=== PATIENT | female | born 1970 | race Caucasian/White ===

== ENCOUNTER → 2023-04-01 07:33 | Outpatient (REF) | payer OTHER, SELFPAY ==
[2023-04-01 09:10] LABS: ALT (SGPT) 34 U/L (0-35); AST (SGOT) 27 U/L (14-36); Albumin 4.2 g/dl (3.5-5.0); Alkaline Phosphatase 45 U/L (38-126); Blood Urea Nitrogen 16 mg/dl (7-17); Calcium 9.8 mg/dl (8.4-10.2); Carbon Dioxide 29 mmol/L (22-30); Chloride 103 mmol/L (98-107); Glucose 90 mg/dl (70-99); HDL Cholesterol 54 mg/dl; LDL Cholesterol, Calculated 136 mg/dl; Potassium 4.6 mmol/L (3.5-5.1); Sodium 141 mmol/L (135-145); Total Cholesterol 213 mg/dl (50-199); Total Protein 6.9 g/dl (6.3-8.2); Triglyceride 116 mg/dl (10-149); Very Low Density Lipoprotein 23 mg/dl (0-30); eGFR > 60.00
== END ==
LOC: REG 07:33
PROVIDERS: ATTENDING PHYSICIAN Internal Medicine Cardiovascular Disease
DX: Z13.220 Encounter for screening for lipoid disorders (principal); I10 Essential (primary) hypertension
CPT/HCPCS: 36415; 80053; 80061

== ENCOUNTER → 2023-04-02 10:31 | Outpatient (REF) | payer OTHER, SELFPAY | LOC: MRI 10:31 | PROVIDERS: ATTENDING PHYSICIAN Emergency Medicine | DX: R47.1 Dysarthria and anarthria (principal); R47.81 Slurred speech; R47.89 Other speech disturbances | CPT/HCPCS: 70544; 70547; 70553; A9575 ==

== ENCOUNTER → 2023-04-08 10:24 | Outpatient (REF) | payer OTHER, SELFPAY ==
[2023-04-08 13:00] LABS: Folate 16.8 ng/ml (2.76-20)
[2023-04-08 16:19] LABS: Lyme Antibody Screen, EIA Negative (Negative)
[2023-04-09 14:49] LABS: Syphilis/T. pallidum Ab Reflex Negative (Negative)
[2023-04-09 16:43] LABS: HIV Combo Negative (Negative)
== END ==
LOC: REG 10:24
PROVIDERS: ATTENDING PHYSICIAN Psychiatry & Neurology Neurology; FAMILY PHYSICIAN Emergency Medicine
DX: R47.9 Unspecified speech disturbances (principal)
CPT/HCPCS: 36415; 82746; 86618; 86780; 87389

== ENCOUNTER 2023-05-06 18:22 | Emergency (ER) | payer OTHER, SELFPAY ==
[2023-05-06 18:25] VITALS: BP 170/117
[2023-05-06 21:13] VITALS: BMI 25.8
[2023-05-06 21:20] VITALS: BP 144/95
[2023-05-06 21:53] LABS: % Basophils 1.1 % (0-2); % Eosinophils 1.6 % (0-6); % Immature Granulocytes 0.2 % (0-0.5); % Lymphocytes 27.7 % (20.5-51.1); % Monocytes 7.2 % (1.7-9.3); % Neutrophils 62.2 % (42.2-75.2); Absolute Basophils 0.1 10^3/uL (0-0.2); Absolute Eosinophils 0.1 10^3/uL (0-0.7); Absolute Lymphocytes 2.5 10^3/uL (1.2-3.4); Absolute Monocytes 0.6 10^3/uL (0.1-0.6); Absolute Neutrophils 5.5 10^3/uL (1.4-6.5); Hematocrit 40.4 % (37.0-47.0); Hemoglobin 14.2 g/dL (12.0-16.0); Mean Corp Hgb Conc. 35.1 g/dL (33.0-37.0); Mean Corpuscular Hgb 30.5 pg (27.0-31.0); Mean Corpuscular Volume 86.7 fL (81.0-99.0); Mean Platelet Volume 9.7 fL (7.4-10.4); Nucleated Red Blood Cells % 0 %; Platelet Count 318 10^3/uL (130-400); Red Blood Cell Count 4.66 10^6/uL (4.20-5.40); White Blood Cell Count 8.9 10^3/uL (4.8-10.8)
[2023-05-06 22:08] LABS: ALT (SGPT) 31 U/L (0-35); AST (SGOT) 27 U/L (14-36); Albumin 4.9 g/dl (3.5-5.0); Alkaline Phosphatase 53 U/L (38-126); Blood Urea Nitrogen 13 mg/dl (7-17); Calcium 10.2 mg/dl (8.4-10.2); Carbon Dioxide 24 mmol/L (22-30); Chloride 103 mmol/L (98-107); Estimated Creatinine Clearance 99 ml/min; Glucose 96 mg/dl (70-99); Sodium 136 mmol/L (135-145); Total Bilirubin 1.1 mg/dl (0.2-1.3); Total Protein 7.7 g/dl (6.3-8.2); eGFR > 60.00
[2023-05-06 22:19] LABS: Troponin I < 0.012 ng/ml
--- NOTE | 2023-05-06 22:24 | ED.GENMED ---
History of Present Illness
General
Chief Complaint: Back Pain
Source: patient and spouse
Exam Limitations: none
Time Seen by Provider: 05/06/23 22:04
Travel History
Have you had any contact with someone who has COVID-19?: No
Do you have any symptoms of coronavirus? Fever > 100 degrees, chills, cough, shortness of breath, sore throat, loss of taste or smell, muscle aches, or headache?: No
History of Present Illness
History of Present Illness:
See MDM
Past History
Past History
ED Past Medical History: HTN, Other (low back pain; TOMMIE x 1 6 years ago) and Other (scoliosis; kidney stone)
ED Past Surgical History: Orthopedic (L knee arthroscopy, right shoulder repair)
Social History
Tobacco: Non-smoker
Alcohol: None
Personal:
Living: with family
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
Family History
Family History: Other (Noncontributory)
Phy Exam
Physical Exam
Physical Exam:
See MDM
Course
Orders/Labs/Results
Orders:
Orders
05/06/23 18:29
Electrocardiogram (*1) Urgent
Reason for Study: Other
Other Reason for Exam: jaw tightness
EKG- Treatment ONCE
05/06/23 21:43
Complete Blood Count/With Diff Urgent
Comprehensive Metabolic Panel Urgent
05/06/23 21:45
Troponin I Urgent
Comment: upper back pain
05/06/23 21:43
05/06/23 21:43
Vital Signs
Initial and Last Documented VS:
Initial Vital Signs
Temp Pulse Resp BP Pulse Ox
97.7 F 90 16 170/117 98
05/06/23 18:25 05/06/23 18:25 05/06/23 18:25 05/06/23 18:25 05/06/23 18:25
Last Documented Vital Signs
Temp Pulse Resp BP Pulse Ox
97.7 F 87 20 144/95 97
05/06/23 18:25 05/06/23 21:20 05/06/23 21:20 05/06/23 21:20 05/06/23 21:20
MDM/Problems Addressed
Differential Diagnosis Includes:
HPI and MDM Narrative:
53-year-old female presenting with resolved back and arm pain. She developed it a few hours ago while she was [place]. Symptoms have since resolved on their own. Spouse at bedside indicating that there is more to the
story. Patient is worried this could be related to a possible stroke. Patient has developed mild aphasia over the past several months. Since then, they had seen PCP and have had MRI, MRA and carotid ultrasounds. Spouse states all are negative.
They have since been seeing a speech pathologist which has helped with her speech issues. The patient is worried because her mother had a stroke in her 50s.
On exam, there is no physical findings to explain chest or back pain. Lungs are clear. No rash. No muscle spasm. Patient is sitting in bed comfortably. I had a very long conversation with patient and indicating that the neck step may be
following up with PCP and possibly psychiatry. She appears to be under stress with her new diagnosis and I do believe that speaking to a psychiatrist may help with some of her symptoms. Patient and very receptive to this
Physical exam
General: Well appearing and non-toxic
HEENT: protecting airway
Neck: appears supple
CV: No evidence of cyanosis. Regular rate and rhythm
Resp: No accessory muscle use. Lungs clear
Abd: Non-distended
Extremities: No deformities. No lower leg edema
Neuro: alert. Slow speech
Psych: Normal affect
Skin: Intact
Problems Addressed including Acute and Chronic Conditions affecting care:
1. Back and arm pain
Acuity: acute
Prognosis: stable
Details: EKG nonischemic. Basic blood work obtained. We discussed likely musculoskeletal pain
2. Slow speech
Acuity: Chronic
Prognosis: stable
Details: Symptoms improving with speech pathology. Discussed follow-up with psych
Updates
Blood work within normal limits. Patient and feel comfortable going home
Differential Diagnosis (but not limited to): Muscle strain, noncardiac chest pain
Testing considered: D-dimer but she is neither tachycardic nor hypoxic
Drug therapy (if applicable): OTC meds, please see d/c instruction regarding Rx drugs
Amount and/or Complexity of Data Reviewed
Clinical info obtained from: Patient and
External data reviewed: N/A
Labs I independently reviewed (but not limited to): Troponin negative
Radiology: N/A
Pulse Ox: not hypoxic
EKG independently reviewed: Sinus rhythm, normal axis, no STEMI
[employer] Supervisor: N/A
Critical Care: N/A
Risk of Complication:
Social Determinants of health: Good social support
Discussed with other providers: N/A
Escalation of Care includes Admit/Obs: After being observed in the Emergency Department, pt stable for discharge.
Occasional wrong word or 'sound a like' substitutions may have occurred due to the inherent limitations of voice recognition software. Read the chart carefully and recognize, using context, where substitutions have occurred.
*Critical Care Note
Total Time (30-74mins, 75-104mins- exclusive of procedures): Not Applicable
ED Attending Note
-
Portions of this chart may have been created with voice recognition software.� Occasional wrong word or��sound alike� substitutions may have occurred due to the inherent limitations of voice recognition software.
Discharge Plan
Departure
Patient Disposition: Home (Routine Discharge)
Date of Disposition: 05/06/23
Time of Disposition: 23:15
Patient with high blood pressure during this ER visit?: Yes
Discharge Problem:
Back pain
Instructions: Upper Back Pain (DC), BLOOD PRESSURE
Prescriptions:
No Action
Lisinopril
20 mg PO DAILY
ezetimibe [Zetia] 10 mg Tablet
10 mg PO DAILY
aspirin 81 mg Capsule
81 mg PO DAILY
Vitamin C
1 tab PO DAILY
Vitamin D3
1 tab PO DAILY
Referrals:
Aracelis Phan MD [Family Provider] -
Activity Restrictions/Additional Instructions:
Please return for any worsening symptoms.
You may return at any time if you have further concerns.
Please follow up with your doctor at the first available appointment, preferably this week.
Thank you for choosing [facility].
Interventions
Interventions:
*Risk Screen - Suicide Last Done: 05/06/23 21:20
*General Assessment Last Done: 05/06/23 21:20
ED- Fall Risk Assessment Last Done: 05/06/23 21:20
*ED COVID-19 Vaccine History Last Done: 05/06/23 18:25
ED-Musculoskeletal Assessment Last Done: 05/06/23 21:20
[2023-05-06 23:39] VITALS: BP 133/100
== END 2023-05-06 23:39 | disposition home or self-care (01) ==
LOC: EMR 18:22
PROVIDERS: Emergency Medicine; EMERGENCY PHYSICIAN Student in an Organized Health Care Education/Training Program; FAMILY PHYSICIAN Emergency Medicine
DX: M54.9 Dorsalgia, unspecified (principal); I10 Essential (primary) hypertension; Z87.442 Personal history of urinary calculi
CPT/HCPCS: 99283; 80053; 84484; 85025; 93005

== ENCOUNTER 2023-05-07 06:40 | Outpatient (RCR) | payer OTHER, SELFPAY | END 2023-05-07 23:59 | disposition home or self-care (01) | LOC: RST 06:40 | PROVIDERS: ATTENDING PHYSICIAN Psychiatry & Neurology Neurology; FAMILY PHYSICIAN Emergency Medicine | DX: R47.9 Unspecified speech disturbances (principal) | CPT/HCPCS: 92507; 92523 ==

== ENCOUNTER → 2023-05-14 15:23 | Outpatient (REF) | payer OTHER, SELFPAY ==
[2023-05-14 17:48] LABS: C-Reactive Protein < 5.00 mg/L (0.0-10.00)
[2023-05-14 17:52] LABS: Erythrocyte Sed Rate 8 mm/hour (0-20)
[2023-05-14 18:06] LABS: FSH 55.1 mIU/ml; Prolactin 7.2 ng/ml (3.0-18.6)
[2023-05-14 18:20] LABS: TSH Reflex To Free T4 2.91 uIU/ml (0.47-4.68)
[2023-05-14 18:22] LABS: Testosterone, Total 32.5 ng/dl
[2023-05-17 07:53] LABS: ANA, IgG Reflex to HEp-2 None Detected (None Detected)
[2023-05-18 12:54] LABS: Myeloperoxidase Antibody 0 AU/mL (0-19); Serine Protease-3, IgG 1 AU/mL (0-19)
[2023-05-20 12:40] LABS: Albumin 4.81 g/dL (3.75-5.01); Alpha 1 Globulin 0.25 g/dL (0.19-0.46); Alpha 2 Globulin 0.71 g/dL (0.48-1.05); SPEP IFE Reflex Not Done; Total Protein-Electrophoresis 7.7 g/dL (6.3-8.2)
== END ==
LOC: REG 15:23
PROVIDERS: ATTENDING PHYSICIAN Emergency Medicine
DX: R47.89 Other speech disturbances (principal); R47.1 Dysarthria and anarthria; R47.81 Slurred speech
CPT/HCPCS: 36415; 83001; 83002; 83516; 84146; 84155; 84165; 84403; 84443; 85652; 86038; 86140

== ENCOUNTER 2023-05-27 09:22 | Outpatient (RCR) | payer OTHER, SELFPAY | END 2023-05-27 23:59 | disposition home or self-care (01) | LOC: RST 09:22 | PROVIDERS: ATTENDING PHYSICIAN Psychiatry & Neurology Neurology; FAMILY PHYSICIAN Emergency Medicine | DX: R47.9 Unspecified speech disturbances (principal) | CPT/HCPCS: 92507; 92523 ==

== ENCOUNTER → 2023-05-30 08:20 | Outpatient (REF) | payer OTHER, SELFPAY ==
[2023-05-30 09:50] LABS: Blood Urea Nitrogen 16 mg/dl (7-17); Calcium 9.7 mg/dl (8.4-10.2); Carbon Dioxide 24 mmol/L (22-30); Chloride 108 mmol/L (98-107); Glucose 95 mg/dl (70-99); Potassium 4.6 mmol/L (3.5-5.1); Sodium 139 mmol/L (135-145); eGFR > 60.00
[2023-05-30 12:23] LABS: Free T4 0.85 ng/dl (0.78-2.19)
[2023-05-30 12:36] LABS: Cortisol, Random 15.8 ug/dl; TSH 4.98 uIU/ml (0.47-4.68)
[2023-05-31 14:53] LABS: Adrenocorticotropic Hormone 19.3 pg/mL (7.2-63.3)
[2023-06-04 03:05] LABS: IGF-1 Z Score Calculation 1.3; Insulin-like Growth Factor I 199 ng/mL (49-234)
== END ==
LOC: REG 08:20
PROVIDERS: ATTENDING PHYSICIAN Internal Medicine Endocrinology, Diabetes & Metabolism; FAMILY PHYSICIAN Emergency Medicine
DX: E23.6 Other disorders of pituitary gland (principal)
CPT/HCPCS: 36415; 80048; 82024; 82533; 84305; 84436; 84439; 84443

== ENCOUNTER 2023-06-18 09:39 | Outpatient (RCR) | payer OTHER, SELFPAY | END 2023-06-18 23:59 | disposition home or self-care (01) | LOC: RST 09:39 | PROVIDERS: ATTENDING PHYSICIAN Psychiatry & Neurology Neurology; FAMILY PHYSICIAN Emergency Medicine | DX: R47.89 Other speech disturbances (principal) | CPT/HCPCS: 92507 ==

== ENCOUNTER → 2023-07-06 07:42 | Outpatient (REF) | payer OTHER, SELFPAY | LOC: MRI 07:42 | PROVIDERS: ATTENDING PHYSICIAN Psychiatry & Neurology Neurology; FAMILY PHYSICIAN Emergency Medicine | DX: R29.898 Other symptoms and signs involving the musculoskeletal system (principal) | CPT/HCPCS: 70553; A9575 ==

== ENCOUNTER → 2023-07-19 07:03 | Outpatient (REF) | payer OTHER, SELFPAY | LOC: MRI 3T 07:03 | PROVIDERS: ATTENDING PHYSICIAN Orthopaedic Surgery; FAMILY PHYSICIAN Emergency Medicine | DX: M54.2 Cervicalgia (principal) | CPT/HCPCS: 72141 ==

== ENCOUNTER → 2023-07-19 08:42 | Outpatient (REF) | payer OTHER, SELFPAY ==
[2023-07-19 09:52] LABS: Creatine Phosphokinase 86 U/L (30-135)
[2023-07-19 10:27] LABS: HIV Combo Negative (Negative)
[2023-07-20 17:43] LABS: Ceruloplasmin 22 mg/dL (16-45)
[2023-07-21 00:30] LABS: Copper, Serum 102.3 ug/dL (80.0-155.0)
== END ==
LOC: REG 08:42
PROVIDERS: ATTENDING PHYSICIAN Student in an Organized Health Care Education/Training Program; FAMILY PHYSICIAN Emergency Medicine
DX: G12.20 Motor neuron disease, unspecified (principal)
CPT/HCPCS: 36415; 82390; 82525; 82550; 82565; 82784; 83521; 84155; 84165; 84630; 86334; 87389

== ENCOUNTER 2023-07-23 10:02 | Outpatient (RCR) | payer OTHER, SELFPAY | END 2023-07-23 23:59 | disposition home or self-care (01) | LOC: RST 10:02 | PROVIDERS: ATTENDING PHYSICIAN Psychiatry & Neurology Neurology; FAMILY PHYSICIAN Emergency Medicine | DX: R47.9 Unspecified speech disturbances (principal) | CPT/HCPCS: 92507 ==

== ENCOUNTER → 2023-08-13 07:31 | Outpatient (REF) | payer OTHER, SELFPAY | LOC: PAVMRI 07:31 | PROVIDERS: ATTENDING PHYSICIAN Student in an Organized Health Care Education/Training Program; FAMILY PHYSICIAN Emergency Medicine | DX: G12.20 Motor neuron disease, unspecified (principal) | CPT/HCPCS: 72146 ==

== ENCOUNTER 2023-08-28 08:39 | Outpatient (RCR) | payer OTHER, SELFPAY | END 2023-08-28 23:59 | disposition home or self-care (01) | LOC: RST 08:39 | PROVIDERS: ATTENDING PHYSICIAN Psychiatry & Neurology Neurology; FAMILY PHYSICIAN Emergency Medicine | DX: R47.9 Unspecified speech disturbances (principal) | CPT/HCPCS: 92507 ==

== ENCOUNTER → 2024-05-01 09:19 | Outpatient (REF) | payer OTHER, SELFPAY | LOC: WDC 09:19 | PROVIDERS: ATTENDING PHYSICIAN Nurse Practitioner | DX: R92.8 Other abnormal and inconclusive findings on diagnostic imaging of breast (principal) | CPT/HCPCS: 77065 ==

== ENCOUNTER → 2024-05-01 10:13 | Outpatient (REF) | payer OTHER, SELFPAY ==
[2024-05-01 13:11] LABS: ALT (SGPT) 42 U/L (0-35); AST (SGOT) 38 U/L (14-36); HDL Cholesterol 56 mg/dl; LDL Cholesterol, Calculated 75 mg/dl; Total Cholesterol 147 mg/dl (50-199); Triglyceride 83 mg/dl (10-149); Very Low Density Lipoprotein 16 mg/dl (0-30)
== END ==
LOC: REG 10:13
PROVIDERS: ATTENDING PHYSICIAN Internal Medicine Cardiovascular Disease; FAMILY PHYSICIAN Nurse Practitioner
DX: I10 Essential (primary) hypertension (principal); E78.00 Pure hypercholesterolemia, unspecified; R74.01 Elevation of levels of liver transaminase levels; K76.0 Fatty (change of) liver, not elsewhere classified
CPT/HCPCS: 36415; 80061; 84450; 84460

== ENCOUNTER 2024-08-15 15:50 | Emergency (ER) | payer OTHER, MEDICARE, SELFPAY ==
[2024-08-15 15:51] VITALS: BMI 18.2
[2024-08-15 15:52] VITALS: BP 146/98
--- NOTE | 2024-08-15 18:55 | ED.GENMED ---
History of Present Illness
General
Chief Complaint: Head Injury
Time Seen by Provider: 08/15/24 17:36
History of Present Illness
History of Present Illness:
54-year-old female with history of ALS and frontotemporal dementia presenting after a fall. Daughter is at bedside note the patient has chronic weakness to upper extremities. She her dog got in the way and she tripped, falling forward, was not
able to brace her fall. She separately fell forward, struck her face without reported loss of consciousness. She arrives with a laceration to her upper and bleeding. She is unsure if her tooth is loose. Family note that she chronically has
issues in handling her secretions. Patient somewhat limited historian given her chronic medical history. No reported additional injuries. No report of any blood thinners or additional medical complaints
Past History
Past History
ED Past Medical History: HTN, Other (low back pain; TOMMIE x 1 6 years ago) and Other (scoliosis; kidney stone)
ED Past Surgical History: Orthopedic (L knee arthroscopy, right shoulder repair)
Social History
Tobacco: Non-smoker
Alcohol: None
Personal:
Living: with family
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
Family History
Family History: Other (Noncontributory)
Phy Exam
Physical Exam
Physical Exam:
General: Well-appearing, no clinical signs of dehydration, nontoxic and in no acute distress
HEENT: protecting airway, pupils equal and reactive
Head: Complicated laceration at the upper lip, involving the lip, through and through. Tooth #11 is slightly loose. Bite appears to be intact.
Neck: appears supple
CV: Normal heart rate
Resp: No accessory muscle use, no increased work of breathing, lungs clear to auscultation bilaterally
Abd: Soft and non-distended, no tenderness to palpation
Extremities: No deformities, no swelling
Neuro: alert, no focal neurologic deficit
: deferred
Rectal: deferred
Psych: Normal affect
Skin: Intact
Course
Orders/Labs/Results
Orders:
Orders
08/15/24 17:55
CT Facial Bones W/o Iv Contras Urgent
Comment:
Reason For Exam: upper lip/facial trauma after fall
CT Head W/o Iv Contrast Urgent
Comment:
Reason For Exam: fall, facial trauma
08/15/24 19:13
Tetanus/Diphth/Acelpertussis [Adacel] 0.5 ml IM .ONCE ONE
Vital Signs
Initial and Last Documented VS:
Initial Vital Signs
Temp Pulse Resp BP Pulse Ox
98.3 F 128 18 146/98 98
08/15/24 15:52 08/15/24 15:52 08/15/24 15:52 08/15/24 15:52 08/15/24 15:52
Last Documented Vital Signs
Temp Pulse Resp BP Pulse Ox
98.3 F 128 18 146/98 98
08/15/24 15:52 08/15/24 15:52 08/15/24 15:52 08/15/24 15:52 08/15/24 18:59
Procedures
Laceration Closure
Lip:
Status of Wound: clean
Size of Wound in cm: 5
Description of Wound Edges: ragged
Preparation: cleaned with saline
Anesthesia: 1% Lidocaine
Type of Closure: layered closure
Skin Closure Material: 4-0 vicryl
Number of sutures: 5
Face:
Status of Wound: clean
Size of Wound in cm: 5
Description of Wound Edges: sharp
Preparation: cleaned with saline
Anesthesia: 1% Lidocaine
Type of Closure: layered closure
Skin Closure Material: 5-0 nylon
Number of sutures: 9
MDM/Problems Addressed
MDM/Problems Addressed:
54-year-old female with history of ALS and frontotemporal dementia presenting after a fall. Vital signs significant for tachycardia.
On exam, patient is resting comfortably, no acute distress. Patient has obvious facial trauma with complicated laceration above the upper lip, involving the lip, through and through. Inner upper lip initially dislodged between gumline of front
teeth. Patient was anesthetized with lidocaine and was able to free the lip and investigate the laceration. Laceration and wound was irrigated. Wound was appropriately sutured. Please see procedure note. Front tooth does appear to be a little
loose. Will obtain CT head and CT facial bones
21:00 -patient CT of his head is unremarkable. CT of the face shows a subtle maxillary spine fracture. Did discuss with oral maxillofacial surgeon, no present treatment needed. Advised following up with the dentist given tooth #11 being slightly
loose with the fracture. Ultimately feel stable for discharge. There was scant amount of blood from the left nare upon discharge, no patrice epistaxis, no internal trauma to the nose.
*Pulse Oximetry
SaO2: 98
Oxygen Mode of Delivery: Room air
Patient hypoxic: no
*Critical Care Note
Total Time (30-74mins, 75-104mins- exclusive of procedures): Not Applicable
ED Attending Note
-
Portions of this chart may have been created with voice recognition software.� Occasional wrong word or��sound alike� substitutions may have occurred due to the inherent limitations of voice recognition software.
Discharge Plan
Departure
Patient Disposition: Home (Routine Discharge)
Date of Disposition: 08/15/24
Time of Disposition: 21:18
Patient with high blood pressure during this ER visit?: No
Condition: Good
Discharge Problem:
Fall, Complex laceration of face, Maxillary fracture
Instructions: Head Injury in Adults (DC), Laceration Repair With Stitches (DC), Facial fractures
Prescriptions:
No Action
Lisinopril
20 mg PO DAILY
ezetimibe [Zetia] 10 mg Tablet
10 mg PO DAILY
aspirin 81 mg Capsule
81 mg PO DAILY
Vitamin C
1 tab PO DAILY
Vitamin D3
1 tab PO DAILY
Referrals:
Cathy Mullen CRNP [Family Provider, General]
Activity Restrictions/Additional Instructions:
You were seen in the emergency department for a fall
You were found to have a significant laceration to your face. You had 9 sutures placed on your face which will require removal in about 7 to 10 days. You also had sutures placed inside of your upper lip region which do not need to be removed. You
were found to have a subtle fracture to your maxillary bone. Please follow-up with the dentist regarding evaluation of your tooth.
Please follow-up closely with your primary care physician.
Return to the emergency department for any worsening of your symptoms, or any development of chest pain, difficulty breathing, abdominal pain with persistent vomiting and inability to tolerate food or liquid by mouth (concern for dehydration),
weakness, headache or confusion, fever greater than 100.4, or any additional symptoms that are concerning to you.
Thank you for choosing [facility].
Interventions
Interventions:
*Risk Screen - Suicide Last Done: 08/15/24 16:23
*General Assessment Last Done: 08/15/24 16:23
*Neglect/Abuse Screening Last Done: 08/15/24 16:23
*ED- Fall Risk Assessment Last Done: 08/15/24 21:37
*ED COVID-19 Vaccine History Last Done: 08/15/24 16:23
*Nursing Disposition Last Done: 08/15/24 21:37
ED- Neurological Assessment Last Done: 08/15/24 16:25
ED-Skin Assessment Last Done: 08/15/24 16:25
Discharge Date and Time
Discharge Date/Time: 08/15/24 21:38
Print Language: AUSTRIAN
[2024-08-15] MEDS: ADACEL 0.5 ML IM (19:49)
== END 2024-08-15 21:38 | disposition home or self-care (01) ==
LOC: EMR 15:50
PROVIDERS: EMERGENCY PHYSICIAN Student in an Organized Health Care Education/Training Program; FAMILY PHYSICIAN Nurse Practitioner
DX: S01.511A Laceration without foreign body of lip, initial encounter (principal); S02.40CA Maxillary fracture, right side, initial encounter for closed fracture; W01.0XXA Fall on same level from slipping, tripping and stumbling without subsequent striking against object, initial encounter; I10 Essential (primary) hypertension; G31.09 Other frontotemporal neurocognitive disorder; F02.80 Dementia in other diseases classified elsewhere, unspecified severity, without behavioral disturbance, psychotic disturbance, mood disturbance, and anxiety; Z23 Encounter for immunization
CPT/HCPCS: 12052; 90471; 99284; 70450; 70486; 90715

== ENCOUNTER → 2024-09-18 08:48 | Outpatient (REF) | payer OTHER, MEDICARE, SELFPAY ==
[2024-09-18 09:43] LABS: Hematocrit 42.6 % (37.0-47.0); Hemoglobin 14.2 g/dL (12.0-16.0); Mean Corp Hgb Conc. 33.3 g/dL (33.0-37.0); Mean Corpuscular Volume 92.6 fL (81.0-99.0); Nucleated Red Blood Cells % 0 %; Platelet Count 331 10^3/uL (130-400); Red Cell Dist. Width 12.7 % (11.5-14.5)
[2024-09-18 09:51] LABS: APTT 24.9 Sec (23.4-35.0)
[2024-09-18 13:41] LABS: ALT (SGPT) 35 U/L (0-35); AST (SGOT) 31 U/L (14-36); Albumin 4.7 g/dl (3.5-5.0); Alkaline Phosphatase 38 U/L (38-126); Blood Urea Nitrogen 17 mg/dl (7-17); Calcium 10.0 mg/dl (8.4-10.2); Carbon Dioxide 28 mmol/L (22-30); Chloride 104 mmol/L (98-107); Glucose 92 mg/dl (70-99); Potassium 4.9 mmol/L (3.5-5.1); Sodium 139 mmol/L (135-145); Total Protein 7.7 g/dl (6.3-8.2); eGFR > 60.00
[2024-09-18 14:36] LABS: TSH 3.55 uIU/ml (0.47-4.68)
== END ==
LOC: REG 08:48
PROVIDERS: ATTENDING PHYSICIAN Internal Medicine Cardiovascular Disease; FAMILY PHYSICIAN Nurse Practitioner
DX: G12.21 Amyotrophic lateral sclerosis (principal); I10 Essential (primary) hypertension; E78.5 Hyperlipidemia, unspecified; R00.0 Tachycardia, unspecified
CPT/HCPCS: 36415; 80053; 84439; 84443; 85025; 85730